=== PATIENT | female | born 1945 | race Caucasian/White ===

== ENCOUNTER 2016-05-24 13:56 | Outpatient (CLI) | payer MEDICARE ==
[~2016-05-24] VITALS: Ht 162.6 cm; Wt 84.0 kg
[~2016-05-24 13:56] MED LIST: /FEXO18TA PEG; ALBU83IN INH; ALLE180T33 PO; CALC1TAB21 PO; CALCIUM/VITAMIN D PO; CLIN300C PO; DRIS50002 PO; DULE100A INH; FLUTISP; FORM12CA INH; FURO20TA2 PO; HYDR-727 PO; MULTTAB4 PO; PERCOCET PO; PREV30CA11 PO; PREV30CA6 PO; PULMICORT INH; SING10TA32 PO; SING5CHW PO; SODIUM CHLORIDE 0.9% INJ 10 ML SYR IV SCH; TRIA1CR TOP; TRIAMCINOLONE ACET; VITA500047 PO; VITA500C24 PO; VITMTA PO
[2016-05-24] MEDS ORDERED: [UNRECOGNIZED DRUG - CODE] PO (15:40)
[2016-05-24] MEDS ORDERED: ZOFR8TAB PO (15:40)
[2016-05-24] MEDS ORDERED: SENO8.6T2 PO (15:40)
[2016-05-24] MEDS ORDERED: TYLE325T5 PO (15:40)
[2016-05-24] MEDS ORDERED: LORT5TAB PO (15:40)
[2016-05-24] MEDS ORDERED: BENA25CA2 PO (15:40)
[2016-05-24] MEDS ORDERED: STOO100C PO (15:40)
== END 2016-05-24 14:45 | disposition home or self-care (01) ==
LOC: M INFU 13:56
PROVIDERS: ATTEND Hospitalist
DX: C56.1 Malignant neoplasm of right ovary (principal); C56.2 Malignant neoplasm of left ovary

== ENCOUNTER → 2016-05-30 | Outpatient (CLI) | payer MEDICARE ==
[~2016-05-30] MED LIST changes: +BENA25CA2 PO; +LORT5TAB PO; +SENO8.6T2 PO; -SODIUM CHLORIDE 0.9% INJ 10 ML SYR IV SCH; +STOO100C PO; +TYLE325T5 PO; +ZOFR8TAB PO; +[UNRECOGNIZED DRUG - CODE] PO
== END ==
LOC: M WUC 09:22
PROVIDERS: ATTEND Obstetrics & Gynecology
DX: C56.1 Malignant neoplasm of right ovary (principal)

== ENCOUNTER → 2016-06-29 | Outpatient (CLI) | payer MEDICARE ==
[2016-06-29 13:15] LABS: CREATININE FOR GFR 1.36 MG/DL (0.55-1.02); GLOMERULAR FILTRATION RATE 41.2 (>45)
[2016-07-01 10:05] LABS: CA 125 7.3 U/ML (<30.2)
== END ==
LOC: M WUC 09:54
PROVIDERS: ATTEND Obstetrics & Gynecology
DX: C56.1 Malignant neoplasm of right ovary (principal)

== ENCOUNTER 2016-07-19 13:49 | Outpatient (CLI) | payer MEDICARE ==
[~2016-07-19 13:49] MED LIST changes: +SODIUM CHLORIDE 0.9% INJ 10 ML SYR IV SCH
[2016-07-19] MEDS ORDERED: ALTEPLASE 2 MG/2 ML VIAL (J2997 PER 1MG) IV SCH (15:00)
== END 2016-07-19 14:30 | disposition home or self-care (01) ==
LOC: M INFU 13:49
PROVIDERS: ATTEND Internal Medicine
DX: C56.1 Malignant neoplasm of right ovary (principal); C56.2 Malignant neoplasm of left ovary

== ENCOUNTER → 2016-07-25 | Outpatient (CLI) | payer MEDICARE ==
[~2016-07-25] MED LIST changes: -SODIUM CHLORIDE 0.9% INJ 10 ML SYR IV SCH
== END ==
LOC: M WUC 09:19
PROVIDERS: ATTEND Obstetrics & Gynecology
DX: C56.1 Malignant neoplasm of right ovary (principal)

== ENCOUNTER → 2016-07-25 | Outpatient (CLI) | payer MEDICARE ==
[2016-07-25 11:35] LABS: ALBUMIN 3.7 GM/DL (3.2-5.2); ALBUMIN/GLOBULIN RATIO 1.16 (1.00-1.93); BILIRUBIN,TOTAL 0.4 MG/DL (0.2-1.0); CALCIUM LEVEL 9.5 MG/DL (8.8-10.2); CREATININE FOR GFR 1.23 MG/DL (0.55-1.02); GLOMERULAR FILTRATION RATE 46.2 (>45); POTASSIUM SERUM 4.4 MEQ/L (3.5-5.1); TOTAL PROTEIN 6.9 GM/DL (6.4-8.2)
== END ==
LOC: M WUC 09:23
PROVIDERS: ATTEND Family Medicine
DX: R03.0 Elevated blood-pressure reading, without diagnosis of hypertension (principal)

== ENCOUNTER → 2016-08-22 | Outpatient (CLI) | payer MEDICARE | LOC: M WUC 09:29 | PROVIDERS: ATTEND Obstetrics & Gynecology | DX: C56.1 Malignant neoplasm of right ovary (principal) ==

== ENCOUNTER → 2016-09-19 | Outpatient (CLI) | payer MEDICARE | LOC: M WUC 09:30 | PROVIDERS: ATTEND Obstetrics & Gynecology | DX: C56.1 Malignant neoplasm of right ovary (principal) ==

== ENCOUNTER → 2016-10-24 | Outpatient (CLI) | payer MEDICARE | LOC: M WUC 09:26 | PROVIDERS: ATTEND Obstetrics & Gynecology | DX: C56.1 Malignant neoplasm of right ovary (principal) ==

== ENCOUNTER → 2016-11-17 | Outpatient (CLI) | payer MEDICARE ==
[~2016-11-17] MED LIST changes: +PREV1CAP PO; -PREV30CA11 PO; -SENO8.6T2 PO; +SENO8.6T5 PO
--- NOTE | 2016-11-17 13:25 | REPMRS ---
Patient History The patient states she had a clinical breast exam in Patient is postmenopausal, has history of ovarian cancer, and is nulliparous. Family history of colorectal cancer in maternal grandfather at age 50 or over. Digital Woman Screen Mammo: November 17, 2016 - Exam #: [id number] Bilateral CC and MLO view(s) were taken. Technologist: Sivan Mancuso, Technologist No prior studies available for comparison. FINDINGS: The breast tissue is heterogeneously dense. This may lower the sensitivity of mammography. There is an Lcpidg-R-Kigp reservoir overlying the right axilla on the MLO view. There is no evidence of dominant mass, architectural distortion, or clustered microcalcification typical of malignancy. ASSESSMENT: BI-RADS/ACR category 2 mammogram. Benign finding(s). Recommendation Routine screening mammogram of both breasts in 1 year (for women over age 40). This mammogram was interpreted with the aid of an FDA-approved computer-aided dectection system. Electronically Signed By: Lex Houston MD 11/17/16 1412
== END ==
LOC: M WHC 11:13
PROVIDERS: ATTEND Obstetrics & Gynecology
DX: Z12.31 Encounter for screening mammogram for malignant neoplasm of breast (principal)

== ENCOUNTER → 2016-11-21 | Outpatient (CLI) | payer MEDICARE | LOC: M WUC 10:05 | PROVIDERS: ATTEND Obstetrics & Gynecology | DX: C56.1 Malignant neoplasm of right ovary (principal) ==

== ENCOUNTER → 2016-12-26 | Outpatient (CLI) | payer MEDICARE | LOC: M WUC 09:28 | PROVIDERS: ATTEND Obstetrics & Gynecology | DX: C56.1 Malignant neoplasm of right ovary (principal) ==

== ENCOUNTER → 2017-01-24 | Outpatient (CLI) | payer MEDICARE | LOC: M WUC 09:43 | PROVIDERS: ATTEND Obstetrics & Gynecology Gynecologic Oncology | DX: C56.1 Malignant neoplasm of right ovary (principal) ==

== ENCOUNTER → 2017-07-04 | Outpatient (CLI) | payer MEDICARE ==
[2017-07-04 13:29] LABS: BASO % 0.5 % (0.0-1.0); EOS # 0.2 10^3/uL (0.0-0.50); EOS % 2.5 % (0.0-3.0); HEMATOCRIT 44.8 % (36.0-47.0); HEMOGLOBIN 15.2 g/dl (12.0-16.0); IMMATURE GRANULOCYTE % 0.2 % (0-3.0); LYMPH # 2.8 10^3/uL (1.5-4.5); LYMPH % 34.5 % (24.0-44.0); MEAN CORPUSCULAR HGB CONC 33.9 g/dl (32.0-36.5); MEAN CORPUSCULAR VOLUME 88.4 fl (80.0-96.0); MONO # 0.6 10^3/uL (0.0-0.8); MONO % 7.5 % (0.0-5.0); NEUTROPHILS # 4.4 10^3/uL (1.8-7.7); NEUTROPHILS % 54.8 % (36.0-66.0); PLATELET COUNT, AUTOMATED 309 10^3/uL (150-450); RED BLOOD COUNT 5.07 10^6/uL (4.00-5.40); RED CELL DISTRIBUTION WIDTH 14.4 % (11.5-14.5)
[2017-07-04 13:57] LABS: ALBUMIN 3.5 GM/DL (3.2-5.2); ALKALINE PHOSPHATASE 138 U/L (45-117); ALT/SGPT 37 U/L (12-78); ANION GAP 9 MEQ/L (8-16); AST/SGOT 22 U/L (7-37); BILIRUBIN,TOTAL 0.5 MG/DL (0.2-1.0); BLOOD UREA NITROGEN 20 MG/DL (7-18); CALCIUM LEVEL 9.3 MG/DL (8.8-10.2); CARBON DIOXIDE LEVEL 27 MEQ/L (21-32); CHLORIDE LEVEL 106 MEQ/L (98-107); CHOLESTEROL LEVEL 259 MG/DL (<200); CHOLESTEROL RISK RATIO 6.475 (<5); CREATININE FOR GFR 1.33 MG/DL (0.55-1.30); GLOMERULAR FILTRATION RATE 42.1 (>45); GLUCOSE, FASTING 123 MG/DL (70-100); HDL CHOLESTEROL 40 MG/DL (>40); LDL CHOLESTEROL 161.2 MG/DL (<100); NON-HDL-C 219 MG/DL; SODIUM LEVEL 142 MEQ/L (136-145); TRIGLYCERIDES LEVEL 289 MG/DL (<150)
== END ==
LOC: M WUC 10:09
DX: R03.0 Elevated blood-pressure reading, without diagnosis of hypertension (principal)
CPT/HCPCS: 84443

== ENCOUNTER → 2017-10-02 | Outpatient (CLI) | payer MEDICARE ==
[2017-10-02 13:19] LABS: ANION GAP 9 MEQ/L (8-16); BLOOD UREA NITROGEN 22 MG/DL (7-18); CALCIUM LEVEL 9.3 MG/DL (8.8-10.2); CARBON DIOXIDE LEVEL 23 MEQ/L (21-32); CHLORIDE LEVEL 108 MEQ/L (98-107); GLOMERULAR FILTRATION RATE 47.3 (>39); GLUCOSE, FASTING 146 MG/DL (70-100); POTASSIUM SERUM 4.1 MEQ/L (3.5-5.1); SODIUM LEVEL 140 MEQ/L (136-145)
[2017-10-02 14:56] LABS: ESTIMATED AVERAGE GLUCOSE 126 MG/DL (60-110)
== END ==
LOC: M WUC 09:41
DX: R73.01 Impaired fasting glucose (principal)
CPT/HCPCS: 83036

== ENCOUNTER → 2017-10-02 | Outpatient (CLI) | payer MEDICARE ==
[2017-10-03 11:08] LABS: CA 125 4.2 U/ML (<30.2)
== END ==
LOC: M WUC 09:46
DX: C56.1 Malignant neoplasm of right ovary (principal)
CPT/HCPCS: 86304

== ENCOUNTER → 2019-01-23 | Outpatient (CLI) | payer MEDICARE ==
[~2019-01-23] MED LIST changes: -DRIS50002 PO; +DRIS50003 PO; +FLUT50SP12; -FLUTISP; +MELA3TAB41 PO; +MM S100C PO; +OXYC1TAB23 PO; -PERCOCET PO; -STOO100C PO; +TRIA0.1C60 TOP; -TRIA1CR TOP; -ZOFR8TAB PO; +ZOFR8TAB24 PO; -[UNRECOGNIZED DRUG - CODE] PO
[2019-01-23 13:41] LABS: ALBUMIN 3.5 GM/DL (3.2-5.2); BASO # 0.1 10^3/uL (0.0-0.2); BASO % 0.6 % (0.0-1.0); BILIRUBIN,TOTAL 0.6 MG/DL (0.2-1.0); CALCIUM LEVEL 9.6 MG/DL (8.8-10.2); CHOLESTEROL RISK RATIO 5.693 (<5); CREATININE FOR GFR 1.2 MG/DL (0.55-1.30); EOS # 0.2 10^3/uL (0.0-0.5); EOS % 2.6 % (0.0-3.0); GLOMERULAR FILTRATION RATE 47.1 (>39); HEMATOCRIT 48.5 % (36.0-47.0); HEMOGLOBIN 16.2 g/dl (12.0-15.5); LYMPH # 3.8 10^3/uL (1.5-5.0); LYMPH % 47.5 % (24.0-44.0); MEAN CORPUSCULAR HEMOGLOBIN 30.7 pg (27.0-33.0); MEAN CORPUSCULAR HGB CONC 33.4 g/dl (32.0-36.5); MEAN CORPUSCULAR VOLUME 91.9 fl (80.0-96.0); MONO # 0.5 10^3/uL (0.0-0.8); MONO % 6.7 % (0.0-5.0); NEUTROPHILS # 3.4 10^3/uL (1.5-8.5); NEUTROPHILS % 42.5 % (36.0-66.0); PLATELET COUNT, AUTOMATED 315 10^3/uL (150-450); POTASSIUM SERUM 4.8 MEQ/L (3.5-5.1); RED BLOOD COUNT 5.28 10^6/uL (4.00-5.40); TOTAL PROTEIN 6.9 GM/DL (6.4-8.2); WHITE BLOOD COUNT 7.9 10^3/uL (4.0-10.0)
[2019-01-23 14:21] LABS: HEMOGLOBIN A1c 6.1 %
== END ==
LOC: M WUC 09:45
PROVIDERS: ATTEND Family Medicine
DX: R03.0 Elevated blood-pressure reading, without diagnosis of hypertension (principal); R73.01 Impaired fasting glucose

== ENCOUNTER → 2020-01-06 | Outpatient (REF) | payer MEDICARE ==
[~2020-01-06] MED LIST changes: +MELA3TAB30 PO; -MELA3TAB41 PO
[2020-02-21 14:40] LABS: BASO % 0.5 % (0.0-1.0); EOS # 0.2 10^3/uL (0.0-0.5); HEMATOCRIT 50.2 % (36.0-47.0); HEMOGLOBIN 16.7 g/dl (12.0-15.5); LYMPH # 3.4 10^3/uL (1.5-5.0); LYMPH % 47.1 % (24.0-44.0); MEAN CORPUSCULAR HEMOGLOBIN 29.9 pg (27.0-33.0); MEAN CORPUSCULAR HGB CONC 33.3 g/dl (32.0-36.5); MONO # 0.6 10^3/uL (0.0-0.8); MONO % 7.7 % (0.0-5.0); NEUTROPHILS % 41.6 % (36.0-66.0); PLATELET COUNT, AUTOMATED 305 10^3/uL (150-450); RED BLOOD COUNT 5.58 10^6/uL (4.00-5.40); WHITE BLOOD COUNT 7.3 10^3/uL (4.0-10.0)
[2020-03-02 22:15] LABS: HEMOGLOBIN A1c 5.9 %
[2020-03-02 23:52] LABS: ALBUMIN 3.5 GM/DL (3.2-5.2); BILIRUBIN,TOTAL 0.5 MG/DL (0.2-1.0); CALCIUM LEVEL 9.1 MG/DL (8.8-10.2); CREATININE FOR GFR 1.21 MG/DL (0.55-1.30); GLOMERULAR FILTRATION RATE 46.6 (>39); POTASSIUM SERUM 4.4 MEQ/L (3.5-5.1)
== END ==
LOC: M LABWUC 10:20
PROVIDERS: ATTEND Family Medicine
DX: R73.01 Impaired fasting glucose (principal)

== ENCOUNTER → 2020-04-20 | Outpatient (CLI) | payer MEDICARE | LOC: M WUC 09:35 | PROVIDERS: ATTEND Obstetrics & Gynecology Gynecologic Oncology | DX: C56.9 Malignant neoplasm of unspecified ovary (principal) ==

== ENCOUNTER → 2020-10-12 | Outpatient (CLI) | payer MEDICARE | LOC: M WUC 09:10 | PROVIDERS: ATTEND Obstetrics & Gynecology Gynecologic Oncology | DX: C56.9 Malignant neoplasm of unspecified ovary (principal) ==

== ENCOUNTER → 2021-01-13 | Outpatient (CLI) | payer MEDICARE ==
[2021-01-13 16:35] LABS: ALBUMIN 3.5 GM/DL (3.2-5.2); BILIRUBIN,TOTAL 0.7 MG/DL (0.2-1.0); CALCIUM LEVEL 9.6 MG/DL (8.8-10.2); CHOLESTEROL RISK RATIO 6.295 (<5); CREATININE FOR GFR 1.17 MG/DL (0.55-1.30); GLOMERULAR FILTRATION RATE 48.3 (>39)
== END ==
LOC: M WUC 10:06
PROVIDERS: ATTEND Nurse Practitioner Family
DX: Z00.00 Encounter for general adult medical examination without abnormal findings (principal); R73.03 Prediabetes; E78.00 Pure hypercholesterolemia, unspecified

== ENCOUNTER → 2021-02-10 | Outpatient (CLI) | payer MEDICARE ==
--- NOTE | 2021-02-10 13:23 | REPMRS ---
Patient History The patient states she had a clinical breast exam in October 2020. Family history of colorectal cancer at age 50 or over in maternal grandfather. No breast complaints today Patient signed the MRS sheet 1st covid vaccine in July-left arm-Moderna 2nd covid vaccine in August-right arm-patient not sure of either date Infusaport removed 11/2019 Most recent mammos done @ [facility] Patient Identification Verified Digital Woman Screen Mammo: February 10, 2021 - Exam #: [id number] Bilateral CC and MLO view(s) were taken. Technologist: Zee Recinos, Technologist Prior study comparison: November 17, 2016, digital woman screen mammo performed at [facility]. FINDINGS: There are scattered fibroglandular densities. Screening. Digital screening (2D) mammography was performed bilaterally in the CC and MLO projections. Additionally, breast tomosynthesis (3D mammography) was performed bilaterally in the CC and MLO projections. Todays exam was compared to the prior exam/exams. By history, the patient has no complaints of a palpable breast abnormality or other significant breast complaints. The breasts are unchanged in size and shape. There are two, stable, benign, intramammary lymph nodes, on the right. There are no gabo-soft tissue densities or spiculated masses. There is no internal architectural distortion. There are no suspicious gabo-calcific clusters. Skin thickening or nipple retraction is not present. The Volpara volumetric breast density category is B, there are scattered areas of fibroglandular densities. IMPRESSION: BI-RADS Category 2- Benign Findings. There is no evidence of malignant alteration of the breasts. Followup examination recommended in one year. This mammogram was read with the assistance of [facility],an FDA approved computer aided detection system for mammography. The lifetime Tyrer-Cuzick score is 4.0% Negative x-ray reports should not delay surgical consultation if a dominant or clinically suspicious mass is present. Not all breast cancers can be identified by mammography. Therefore, we recommend that you continue to perform regular breast self-examination and physical examination and then promptly contact your physician of any concerns or changes. Adenosis and dense breasts may obscure an underlying neoplasm. No significant changes when compared with prior studies. Assessment: BI-RADS/ACR category 2 mammogram. Benign Findings. Recommendation Routine screening mammogram of both breasts in 1 year. Electronically Signed By: Ludwin Kruse MD 02/10/21 2812
== END ==
LOC: M WHC 12:21
DX: Z12.31 Encounter for screening mammogram for malignant neoplasm of breast (principal)

== ENCOUNTER → 2021-10-07 | Outpatient (CLI) | payer MEDICARE | LOC: M WUC 09:18 | PROVIDERS: ATTEND Nurse Practitioner | DX: C56.9 Malignant neoplasm of unspecified ovary (principal) ==

== ENCOUNTER → 2022-01-13 | Outpatient (REF) | payer MEDICARE ==
[~2022-01-13] MED LIST changes: +ALBU2.5V10 INH; -ALBU83IN INH
[2022-01-13 17:23] LABS: HEMOGLOBIN A1c 5.9 %
[2022-01-13 17:31] LABS: ALBUMIN 3.6 GM/DL (3.2-5.2); BILIRUBIN,TOTAL 0.7 MG/DL (0.2-1.0); CALCIUM LEVEL 9.8 MG/DL (8.8-10.2); CHOLESTEROL RISK RATIO 5.479 (<5); CREATININE FOR GFR 1.23 MG/DL (0.55-1.30); GLOMERULAR FILTRATION RATE 45.4 (>39); POTASSIUM SERUM 4.8 MEQ/L (3.5-5.1); TOTAL PROTEIN 7.2 GM/DL (6.4-8.2)
== END ==
LOC: M WUC 16:13
PROVIDERS: ATTEND Nurse Practitioner Family
DX: R73.03 Prediabetes (principal); Z79.899 Other long term (current) drug therapy

== ENCOUNTER → 2022-02-11 | Outpatient (CLI) | payer MEDICARE | LOC: M WHC 08:54 | PROVIDERS: ATTEND Family Medicine | DX: Z12.31 Encounter for screening mammogram for malignant neoplasm of breast (principal) ==

== ENCOUNTER → 2022-06-13 | Outpatient (CLI) | payer MEDICARE ==
[2022-06-13 17:09] LABS: BLOOD UREA NITROGEN 23 MG/DL (9-23); CALCIUM LEVEL 9.4 MG/DL (8.3-10.6); CARBON DIOXIDE LEVEL 27 MMOL/L (20-31); CHLORIDE LEVEL 103 MMOL/L (98-107); CREATININE FOR GFR 0.91 MG/DL (0.55-1.30); GLOMERULAR FILTRATION RATE > 60.0 (>39); GLUCOSE, FASTING 85 MG/DL (74-106); POTASSIUM SERUM 4.2 MMOL/L (3.5-5.1); SODIUM LEVEL 138 MMOL/L (136-145)
== END ==
LOC: M WUC 14:11
PROVIDERS: ATTEND Nurse Practitioner Family
DX: I10 Essential (primary) hypertension (principal)

== ENCOUNTER → 2022-11-15 | Outpatient (CLI) | payer MEDICARE ==
[~2022-11-15] MED LIST changes: -DULE100A INH; +MOME13HF8 INH; +MONT-5 PO; -SING10TA32 PO
== END ==
LOC: M WUC 10:46
PROVIDERS: ATTEND Obstetrics & Gynecology Gynecologic Oncology
DX: C56.1 Malignant neoplasm of right ovary (principal); C56.2 Malignant neoplasm of left ovary

== ENCOUNTER → 2023-01-10 | Outpatient (CLI) | payer MEDICARE ==
[2023-01-10 12:30] LABS: HEMOGLOBIN A1c 5.7 % (4.0-6.0)
[2023-01-10 12:41] LABS: ALBUMIN 3.5 G/DL (3.2-5.2); ALKALINE PHOSPHATASE 96 U/L (46-116); ALT/SGPT 42 U/L (7.0-40); AST/SGOT 26 U/L (<34); BILIRUBIN,TOTAL 0.9 MG/DL (0.3-1.2); BLOOD UREA NITROGEN 21 MG/DL (9-23); CALCIUM LEVEL 9.5 MG/DL (8.3-10.6); CARBON DIOXIDE LEVEL 29 MMOL/L (20-31); CHLORIDE LEVEL 103 MMOL/L (98-107); CHOLESTEROL LEVEL 266 MG/DL (<200); CHOLESTEROL RISK RATIO 5.47 (<5); CREATININE FOR GFR 0.95 MG/DL (0.55-1.30); GLOMERULAR FILTRATION RATE > 60.0 (>39); GLUCOSE, FASTING 138 MG/DL (74-106); HDL CHOLESTEROL 48.6 MG/DL (>40); LDL CHOLESTEROL 176.6 MG/DL (<100); NON-HDL-C 217.4 MG/DL; POTASSIUM SERUM 4.5 MMOL/L (3.5-5.1); SODIUM LEVEL 141 MMOL/L (136-145); TOTAL PROTEIN 6.8 G/DL (5.7-8.2); TRIGLYCERIDES LEVEL 204 MG/DL (<150)
== END ==
LOC: M WUC 10:13
PROVIDERS: ATTEND Nurse Practitioner Family
DX: I10 Essential (primary) hypertension (principal); R73.03 Prediabetes

== ENCOUNTER → 2023-06-06 | Outpatient (CLI) | payer MEDICARE | LOC: M PLAIMG 12:16 | PROVIDERS: ATTEND Nurse Practitioner Family | DX: R07.89 Other chest pain (principal) ==

== ENCOUNTER → 2023-11-21 | Outpatient (CLI) | payer MEDICARE | LOC: M PLALAB 11:02 | PROVIDERS: ATTEND Nurse Practitioner | DX: C56.9 Malignant neoplasm of unspecified ovary (principal) ==

== ENCOUNTER → 2023-11-21 | Outpatient (CLI) | payer MEDICARE ==
[2023-11-21 16:05] LABS: ALBUMIN 3.6 G/DL (3.2-5.2); BILIRUBIN,TOTAL 0.7 MG/DL (0.3-1.2); CHOLESTEROL RISK RATIO 6.07 (<5); CREATININE FOR GFR 1.06 MG/DL (0.55-1.30); GLOMERULAR FILTRATION RATE 53.7 (>39); HDL CHOLESTEROL 45.1 MG/DL (>40); LDL CHOLESTEROL 182.5 MG/DL (<100); NON-HDL-C 228.9 MG/DL; POTASSIUM SERUM 4.3 MMOL/L (3.5-5.1); TOTAL PROTEIN 6.9 G/DL (5.7-8.2)
== END ==
LOC: M PLALAB 11:00
PROVIDERS: ATTEND Nurse Practitioner Family
DX: I10 Essential (primary) hypertension (principal)

== ENCOUNTER → 2024-02-15 | Outpatient (CLI) | payer MEDICARE | LOC: M WHC 10:23 | PROVIDERS: ATTEND Nurse Practitioner Family | DX: Z12.31 Encounter for screening mammogram for malignant neoplasm of breast (principal) ==

== ENCOUNTER → 2024-05-27 | Outpatient (CLI) | payer MEDICARE ==
[2024-05-27 13:21] LABS: BASO % 0.6 % (0.0-1.0); EOS # 0.2 10^3/uL (0.0-0.5); EOS % 2.2 % (0.0-3.0); HEMATOCRIT 46.6 % (36.0-47.0); HEMOGLOBIN 15.9 g/dl (12.0-15.5); LYMPH # 3.1 10^3/uL (1.5-5.0); LYMPH % 45.4 % (24.0-44.0); MEAN CORPUSCULAR HEMOGLOBIN 31.5 pg (27.0-33.0); MEAN CORPUSCULAR HGB CONC 34.1 g/dl (32.0-36.5); MEAN CORPUSCULAR VOLUME 92.5 fl (80.0-96.0); MONO # 0.6 10^3/uL (0.0-0.8); NEUTROPHILS % 43.5 % (36.0-66.0); PLATELET COUNT, AUTOMATED 277 10^3/uL (150-450); RED BLOOD COUNT 5.04 10^6/uL (4.00-5.40); WHITE BLOOD COUNT 6.9 10^3/uL (4.0-10.0)
[2024-05-27 13:50] LABS: ALBUMIN 3.7 G/DL (3.2-5.2); BILIRUBIN,TOTAL 0.7 MG/DL (0.3-1.2); CALCIUM LEVEL 10.7 MG/DL (8.3-10.6); CREATININE FOR GFR 1.07 MG/DL (0.55-1.30); GLOMERULAR FILTRATION RATE 53.1 (>39); POTASSIUM SERUM 4.9 MMOL/L (3.5-5.1); TOTAL PROTEIN 7.3 G/DL (5.7-8.2)
== END ==
LOC: M PLALAB 09:59
PROVIDERS: ATTEND Nurse Practitioner Family
DX: I10 Essential (primary) hypertension (principal)

== ENCOUNTER → 2025-02-03 | Outpatient (CLI) | payer MEDICARE ==
[~2025-02-03] MED LIST changes: +SENN-225 PO; -SENO8.6T5 PO
[2025-02-03 17:10] LABS: BASO # 0.1 10^3/uL (0.0-0.2); BASO % 0.5 % (0.0-1.0); EOS # 0.2 10^3/uL (0.0-0.5); EOS % 1.9 % (0.0-3.0); LYMPH # 3.7 10^3/uL (1.5-5.0); LYMPH % 39.1 % (24.0-44.0); MONO # 0.8 10^3/uL (0.0-0.8); MONO % 8.8 % (2.0-8.0); NEUTROPHILS # 4.6 10^3/uL (1.5-8.5); NEUTROPHILS % 49.5 % (36.0-66.0); PLATELET COUNT, AUTOMATED 287 10^3/uL (150-450)
[2025-02-03 17:20] LABS: ALT/SGPT 45.0 U/L (7.0-40); AST/SGOT 29.0 U/L (<34); CALCIUM LEVEL 9.9 MG/DL (8.3-10.6); CARBON DIOXIDE LEVEL 30.0 MMOL/L (20-31); CHLORIDE LEVEL 104.0 MMOL/L (98-107); CREATININE FOR GFR 1.01 MG/DL (0.55-1.30); GLOMERULAR FILTRATION RATE 57.3 (>39); POTASSIUM SERUM 4.7 MMOL/L (3.5-5.1); SODIUM LEVEL 139.0 MMOL/L (136-145)
[2025-02-03 17:22] LABS: FREE T4 1.13 NG/DL (0.89-1.76)
== END ==
LOC: M PLALAB 15:42
PROVIDERS: ATTEND Nurse Practitioner Family
DX: R06.02 Shortness of breath (principal); Z79.899 Other long term (current) drug therapy

== ENCOUNTER → 2025-02-17 | Outpatient (CLI) | payer MEDICARE | LOC: M WHC 10:07 | PROVIDERS: ATTEND Nurse Practitioner Family | DX: Z12.31 Encounter for screening mammogram for malignant neoplasm of breast (principal); R92.333 Mammographic heterogeneous density, bilateral breasts ==

== ENCOUNTER → 2025-02-25 | Outpatient (CLI) | payer MEDICARE | LOC: M WHC 12:55 | PROVIDERS: ATTEND Nurse Practitioner Family | DX: R92.8 Other abnormal and inconclusive findings on diagnostic imaging of breast (principal); N63.20 Unspecified lump in the left breast, unspecified quadrant | CPT/HCPCS: 76642; 77065; G0279 ==

== ENCOUNTER → 2025-03-19 | Outpatient (CLI) | payer MEDICARE ==
[2025-03-19 09:15] VITALS: TEMP 97.9
[2025-03-19 10:32] VITALS: BP 144/72; O2SAT 98
== END ==
LOC: M WHCPRO 08:37
PROVIDERS: ATTEND Surgery
DX: C50.212 Malignant neoplasm of upper-inner quadrant of left female breast (principal); N63.22 Unspecified lump in the left breast, upper inner quadrant; R92.8 Other abnormal and inconclusive findings on diagnostic imaging of breast

== ENCOUNTER → 2025-04-09 | Outpatient (CLI) | payer MEDICARE ==
[~2025-04-09] MED LIST changes: +ACET500T15 PO; +AUGM0.0511 EX; +GLIM2TAB29 PO; +LISI10TA24 PO; +METF-838 PO; +OMEGCAP4 PO; +OXYC1CAP2 PO; +THERTAB52 PO; +VENTAER INH; +VITA-243 PO; +VITA100093 PO
[2025-04-09 10:00] VITALS: TEMP 97.7
[2025-04-09 10:40] VITALS: BP 142/74; O2SAT 98
== END ==
LOC: M WHCPRO 09:32
PROVIDERS: ATTEND Surgery
DX: C50.212 Malignant neoplasm of upper-inner quadrant of left female breast (principal)
CPT/HCPCS: 19285; 77065; C1739

== ENCOUNTER → 2025-04-14 | Outpatient (CLI) | payer MEDICARE ==
[~2025-04-14] MED LIST changes: -ACET500T15 PO; -AUGM0.0511 EX; -GLIM2TAB29 PO; -LISI10TA24 PO; -METF-838 PO; -OMEGCAP4 PO; -OXYC1CAP2 PO; -THERTAB52 PO; -VENTAER INH; -VITA-243 PO; -VITA100093 PO
[2025-04-14 14:26] LABS: BASO # 0.0 10^3/uL (0.0-0.2); BASO % 0.4 % (0.0-1.0); EOS # 0.1 10^3/uL (0.0-0.5); EOS % 1.3 % (0.0-3.0); LYMPH # 2.7 10^3/uL (1.5-5.0); LYMPH % 39.9 % (24.0-44.0); MONO # 0.5 10^3/uL (0.0-0.8); MONO % 7.6 % (2.0-8.0); NEUTROPHILS # 3.4 10^3/uL (1.5-8.5); NEUTROPHILS % 50.7 % (36.0-66.0); PLATELET COUNT, AUTOMATED 250 10^3/uL (150-450)
[2025-04-14 14:41] LABS: CALCIUM LEVEL 9.5 MG/DL (8.3-10.6); CARBON DIOXIDE LEVEL 27.0 MMOL/L (20-31); CHLORIDE LEVEL 91.0 MMOL/L (98-107); CREATININE FOR GFR 1.17 MG/DL (0.55-1.30); GLOMERULAR FILTRATION RATE 48.1 (>39); POTASSIUM SERUM 5.4 MMOL/L (3.5-5.1); SODIUM LEVEL 131.0 MMOL/L (136-145)
== END ==
LOC: M PLALAB 11:02
PROVIDERS: ATTEND Nurse Practitioner Family
DX: Z01.818 Encounter for other preprocedural examination (principal); Z79.899 Other long term (current) drug therapy

== ENCOUNTER 2025-05-01 07:34 | Day surgery (SDC) | payer MEDICARE ==
[~2025-05-01] VITALS: Ht 162.6 cm; Wt 102.6 kg
[~2025-05-01 07:34] MED LIST changes: +ACET500T15 PO; +AUGM0.0511 EX; +LISI10TA24 PO; +OMEGCAP4 PO; +THERTAB52 PO; +VENTAER INH; +VITA-243 PO; +VITA100093 PO
[2025-05-01] MEDS ORDERED: GLUCAGON INJ 1 MG VIAL SC PRN (08:10)
[2025-05-01] MEDS ORDERED: GLUCOSE 4 GM CHEW PO PRN (08:10)
[2025-05-01] MEDS ORDERED: DEXTROSE 50% 50 ML SYRINGE IV PRN (08:10)
[2025-05-01] MEDS: INSULIN LISPRO (NovoLOG) PER UNIT SC PRN ×2 (08:22→09:33)
[2025-05-01] MEDS: LR 1,000 ML IV SCH (08:22)
[2025-05-01] MEDS ORDERED: GLIM2TAB29 PO (08:29)
[2025-05-01] MEDS ORDERED: METF-838 PO (08:29)
[2025-05-01] MEDS ORDERED: LIDOCAINE 2% 100 MG/5 ML SDV (FOR ANES.) As Ordered ONE (08:45)
[2025-05-01] MEDS ORDERED: KETOROLAC 30 MG/ML 1 ML VIAL As Ordered ONE (08:47)
[2025-05-01] MEDS ORDERED: ONDANSETRON 4MG/2ML VIAL As Ordered ONE (08:47)
[2025-05-01] MEDS ORDERED: dexAMETHasone 4 MG/ML 1 ML VIAL As Ordered ONE (08:47)
[2025-05-01] MEDS: ceFAZolin SOD 2 GM IV ONCE IV ONE (10:00)
[2025-05-01] MEDS ORDERED: VASOPRESSIN INJ 20UNITS/ML 1ML VIAL As Ordered ONE (10:19)
[2025-05-01] MEDS ORDERED: PHENYLephrine 500MCG 5ML (100MCG/ML) SYRINGE As Ordered ONE (10:21)
[2025-05-01] MEDS ORDERED: EPINEPHrine 1 MG/10 ML SYRINGE 1.5IN As Ordered ONE (10:40)
[2025-05-01] MEDS ORDERED: PHENYLEPHRINE 10MG/ML 1ML VIAL As Ordered ONE (10:58)
[2025-05-01] MEDS ORDERED: ACETAMINOPHEN 1000MG/100ML IV BAG As Ordered ONE (11:02)
[2025-05-01] MEDS ORDERED: OXYC1CAP2 PO (11:56)
[2025-05-01] MEDS ORDERED: MORPHINE 2 MG/ML 1 ML VIAL IV PRN (12:00)
[2025-05-01] MEDS ORDERED: ONDANSETRON 4MG/2ML VIAL IV PRN (12:00)
[2025-05-01 14:25] VITALS: BP 121/60; TEMP 97.3; O2SAT 96
[2025-05-30] MEDS ORDERED: SULF-8 (12:45)
[2025-05-30] MEDS ORDERED: CALC1TAB63 PO (13:27)
[2025-06-02] MEDS ORDERED: ANAS1TAB2 PO (08:06)
[2025-06-17] MEDS ORDERED: CALCCAP4 PO (09:39)
[2025-06-17] MEDS ORDERED: CLIN-250 PO (09:39)
[2025-06-17] MEDS ORDERED: ANAS1TAB2 PO (09:39)
[2025-06-17] MEDS ORDERED: OMEG-28 PO (10:33)
[2025-06-19] MEDS ORDERED: OXYC5CAP56 PO (15:50)
[2025-06-23] MEDS ORDERED: TAMO20TA8 PO (10:09)
== END 2025-05-01 14:30 | disposition home or self-care (01) ==
LOC: M SDC 07:34
PROVIDERS: ATTEND Surgery
DX: D05.12 Intraductal carcinoma in situ of left breast (principal); I10 Essential (primary) hypertension; Z91.040 Latex allergy status; Z88.8 Allergy status to other drugs, medicaments and biological substances; Z79.899 Other long term (current) drug therapy
CPT/HCPCS: 19301; 36415; 84132; 88305; 88307; J0131; J0168; J0688; J1100; J1815; J1885; J2371; J2405; J2598; J3010